=== PATIENT | female | born 1980 | race Caucasian/White ===

== ENCOUNTER 2016-11-01 10:14 | Emergency (ER) | payer OTHER ==
[2016-11-01] MEDS ORDERED: NS 0.9% 1000 ML* 1,000 ML IV SCH (11:00)
[2016-11-01] MEDS ORDERED: Meclizine TAB* 12.5 MG PO ONE (11:35)
[2016-11-01] MEDS ORDERED: NS 0.9% 1000 ML* 1,000 ML IV ONE (11:35)
[2016-11-01] MEDS ORDERED: Metoclopramide IV* 5 MG/ML 2 ML VIAL IV ONE (11:35)
[2016-11-01 11:51] LABS: EBV Response YES
[2016-11-01 11:54] LABS: Hematocrit 45 % (35-47); Mean Corpuscular HGB Conc 33 g/dl (31-36); Mean Corpuscular Hemoglobin 30 pg (27-31); Mean Corpuscular Volume 89 fL (80-97); Mean Platelet Volume 8 um3 (7.4-10.4); Red Blood Count 5.06 10^6/ul (4.0-5.4); Red Cell Distribution Width 14 % (10.5-15); White Blood Count 14.8 10^3/ul (3.5-10.8)
[2016-11-01 11:58] LABS: Add Diff/Slide Review? Slide Review Added; Comments Flag Yes
[2016-11-01 12:10] LABS: ALT 71 U/L (7-52); AST 30 U/L (13-39); Albumin 4.2 g/dL (3.2-5.2); Alkaline Phosphatase 66 U/L (34-104); Anion Gap 3 mmol/L (2-11); BUN/Creatinine Ratio 10.9 (8-20); Blood Urea Nitrogen 12 mg/dL (6-24); C Reactive Protein < 1.00 mg/L (< 5.00); CO2 Carbon Dioxide 31 mmol/L (22-32); Calcium 9.5 mg/dL (8.6-10.3); Chloride 103 mmol/L (101-111); EGFR African American 73.1 (>60); EGFR Non-African American 56.9 (>60); Globulin 3.5 g/dL (2-4); Glucose 105 mg/dL (70-100); Lipase 57 U/L (11.0-82.0); Magnesium 2.4 mg/dL (1.9-2.7); Potassium 3.9 mmol/L (3.5-5.0); Sodium 137 mmol/L (133-145); Total Protein 7.7 g/dL (6.4-8.9)
[2016-11-01 12:32] LABS: Manual Entry Verification AS; Mono Internal Control QC Line Present; Mono Kit Lot# 6110003
[2016-11-01 12:41] LABS: Urine Bilirubin Negative (Negative); Urine Glucose Negative (Negative); Urine Nitrite Negative (Negative)
--- NOTE | 2016-11-01 12:48 | RAD ---
Indication: Headaches, dizziness. CT of the brain was performed without IV contrast. No prior study is available for comparison. Ventricular structures are midline. No midline shift is noted. The extra-axial spaces are unremarkable. There is no evidence of intracranial mass or hemorrhage. No other high or low density lesions are identified. Mastoid air cells and paranasal sinuses as well as the Muñoz calvaria are unremarkable. There is however streak artifact arising from the patient's ear ringing limiting examination of the right orbit and skull base. IMPRESSION: No intracranial mass or hemorrhage is noted.
[2016-11-01 12:53] LABS: TSH (Thyroid Stimulating Horm) 0.87 mcIU/mL (0.34-5.60)
--- NOTE | 2016-11-01 13:59 | ED ---
Jennie Ahmadi Rebecca, scribed for Florentino Barlow MD on 11/01/16 at 1134 . Complex/Multi-Sys Presentation - HPI Summary HPI Summary: Pt is a 35 y/o F who presents to ED with CC of dizziness and nausea. Dizziness is characterized as spinning and is aggravated by looking at her phone, unchanged by moving her head. Pt reports sx began October 09 (3 weeks ago) as sore throat which last for 9 days. She saw her PCP who believed it was viral and prescribed Augmentin (5 mL BID for 1 week) which improved sx for 2 days. 2 days after beginning Augmentin, she began experiencing nausea which had been intermittent until 11 days ago, when it became constant. Additionally c/o intermittent sinus and ear pressure, cough and yellow nasal discharge. Denies abd pain, V/D, constipation, and blood in stool. PMHx sinus infections which start as wisdom tooth pain. Was evaluated by a different ED last Monday (6 days ago) who prescribed her steroids and zofran for sx. - History Of Current Complaint Chief Complaint: EDDizziness Time Seen by Provider: 11/01/16 11:17 Hx Obtained From: Patient Onset/Duration: Lasting Weeks - 3 weeks ago, Still Present Location: Pain At: - Intermittent sinus and ear pressure Character: Pressure Aggravating Factor(s): Dizziness - Looking at phone Associated Signs And Symptoms: Positive: Dizziness - Room spinning, Cough, Nausea, Other - Yellow nasal discharge. Negative: Vomiting, Diarrhea, Abdominal Pain - Allergies/Home Medications Allergies/Adverse Reactions: Allergies Allergy/AdvReac Type Severity Reaction Status Date / Time No Known Allergies Allergy Verified 11/01/16 12:27 PMH/Surg Hx/FS Hx/Imm Hx Endocrine/Hematology History: Denies: Hx Diabetes Cardiovascular History: Denies: Hx Coronary Artery Disease, Hx Hypertension EENT History: Reports: Other - Hx Sinus infections Infectious Disease History: No Infectious Disease History: Denies: Traveled Outside the [place] in Last 30 Days - Family History Known Family History: Positive: Hypertension - Father - Social History Alcohol Use: None Hx Substance Use: No Substance Use Type: Reports: None Smoking Status (MU): Never Smoked Tobacco Review of Systems Positive: Sore Throat - 3 weeks ago - lasted 9 days, Nasal Discharge - Yellow, Other - Sinus and ear pressure Positive: Cough Positive: Nausea, Other - Denies constipation and blood in stool. Negative: Abdominal Pain, Vomiting, Diarrhea Neurological: Other - Dizziness (room spinning) All Other Systems Reviewed And Are Negative: Yes Physical Exam - Summary Physical Exam Summary: General: well-appearing, no pain distress Skin: warm, skin color reflects adequate perfusion, dry Head: normal Eyes: EOMI, AYO ENT: normal Neck: supple, nontender Respiratory: CTA, breath sounds present Cardiovascular: RRR Abdomen: soft, nontender Bowel: present Musculoskeletal: normal, strength/ROM intact Neuro: normal, sensory/motor intact, A&O x3 Psych: affect/mood appropriate Triage Information Reviewed: Yes Vital Signs On Initial Exam: Initial Vitals Temp Pulse Resp BP Pulse Ox 97.8 F 65 16 136/79 100 11/01/16 10:17 11/01/16 10:17 11/01/16 10:17 11/01/16 10:17 11/01/16 10:17 Vital Signs Reviewed: Yes Diagnostics - Vital Signs Vital Signs Temp Pulse Resp BP Pulse Ox 11/01/16 10:46 98.3 F 57 16 128/83 100 11/01/16 10:17 97.8 F 65 16 136/79 100 - Laboratory Lab Results: Lab Results 11/01/16 11/01/16 11/01/16 Range/Units 11:30 11:30 11:30 WBC 14.8 H (3.5-10.8) 10^3/ul RBC 5.06 (4.0-5.4) 10^6/ul Hgb 15.0 (12.0-16.0) g/dl Hct 45 (35-47) % MCV 89 (80-97) fL MCH 30 (27-31) pg MCHC 33 (31-36) g/dl RDW 14 (10.5-15) % Plt Count 276 (150-450) 10^3/ul MPV 8 (7.4-10.4) um3 Neut % (Auto) 88.3 H (38-83) % Lymph % (Auto) 9.0 L (25-47) % [place] % (Auto) 2.1 (1-9) % Eos % (Auto) 0.1 (0-6) % Baso % (Auto) 0.5 (0-2) % Absolute Neuts (auto) 13.1 H (1.5-7.7) 10^3/ul Absolute Lymphs (auto) 1.3 (1.0-4.8) 10^3/ul Absolute Monos (auto) 0.3 (0-0.8) 10^3/ul Absolute Eos (auto) 0 (0-0.6) 10^3/ul Absolute Basos (auto) 0.1 (0-0.2) 10^3/ul Absolute Nucleated RBC 0.01 10^3/ul Nucleated RBC % 0 INR (Anticoag Therapy) 0.85 L (0.89-1.11) APTT 21.0 L (26.0-36.3) seconds Sodium 137 (133-145) mmol/L Potassium 3.9 (3.5-5.0) mmol/L Chloride 103 (101-111) mmol/L Carbon Dioxide 31 (22-32) mmol/L Anion Gap 3 (2-11) mmol/L BUN 12 (6-24) mg/dL Creatinine 1.10 H (0.51-0.95) mg/dL Est GFR ( Amer) 73.1 (>60) Est GFR (Non-Af Amer) 56.9 (>60) BUN/Creatinine Ratio 10.9 (8-20) Glucose 105 H (70-100) mg/dL Lactic Acid (0.5-2.0) mmol/L Calcium 9.5 (8.6-10.3) mg/dL Magnesium 2.4 (1.9-2.7) mg/dL Total Bilirubin 0.40 (0.2-1.0) mg/dL AST 30 (13-39) U/L ALT 71 H (7-52) U/L Alkaline Phosphatase 66 (34-104) U/L C-Reactive Protein < 1.00 (< 5.00) mg/L Total Protein 7.7 (6.4-8.9) g/dL Albumin 4.2 (3.2-5.2) g/dL Globulin 3.5 (2-4) g/dL Albumin/Globulin Ratio 1.2 (1-3) Lipase 57 (11.0-82.0) U/L TSH 0.87 (0.34-5.60) mcIU/mL Beta HCG, Quant < 0.60 mIU/mL Urine Color Urine Appearance Urine pH (5-9) Ur Specific [place] (1.010-1.030) Urine Protein (Negative) Urine Ketones (Negative) Urine Blood (Negative) Urine Nitrate (Negative) Urine Bilirubin (Negative) Urine Urobilinogen (Negative) Ur Leukocyte Esterase (Negative) Urine Glucose (Negative) Monoscreen Negative (Negative) 11/01/16 11/01/16 Range/Units 11:30 12:30 WBC (3.5-10.8) 10^3/ul RBC (4.0-5.4) 10^6/ul Hgb (12.0-16.0) g/dl Hct (35-47) % MCV (80-97) fL MCH (27-31) pg MCHC (31-36) g/dl RDW (10.5-15) % Plt Count (150-450) 10^3/ul MPV (7.4-10.4) um3 Neut % (Auto) (38-83) % Lymph % (Auto) (25-47) % [place] % (Auto) (1-9) % Eos % (Auto) (0-6) % Baso % (Auto) (0-2) % Absolute Neuts (auto) (1.5-7.7) 10^3/ul Absolute Lymphs (auto) (1.0-4.8) 10^3/ul Absolute Monos (auto) (0-0.8) 10^3/ul Absolute Eos (auto) (0-0.6) 10^3/ul Absolute Basos (auto) (0-0.2) 10^3/ul Absolute Nucleated RBC 10^3/ul Nucleated RBC % INR (Anticoag Therapy) (0.89-1.11) APTT (26.0-36.3) seconds Sodium (133-145) mmol/L Potassium (3.5-5.0) mmol/L Chloride (101-111) mmol/L Carbon Dioxide (22-32) mmol/L Anion Gap (2-11) mmol/L BUN (6-24) mg/dL Creatinine (0.51-0.95) mg/dL Est GFR ( Amer) (>60) Est GFR (Non-Af Amer) (>60) BUN/Creatinine Ratio (8-20) Glucose (70-100) mg/dL Lactic Acid 1.7 (0.5-2.0) mmol/L Calcium (8.6-10.3) mg/dL Magnesium (1.9-2.7) mg/dL Total Bilirubin (0.2-1.0) mg/dL AST (13-39) U/L ALT (7-52) U/L Alkaline Phosphatase (34-104) U/L C-Reactive Protein (< 5.00) mg/L Total Protein (6.4-8.9) g/dL Albumin (3.2-5.2) g/dL Globulin (2-4) g/dL Albumin/Globulin Ratio (1-3) Lipase (11.0-82.0) U/L TSH (0.34-5.60) mcIU/mL Beta HCG, Quant mIU/mL Urine Color Straw Urine Appearance Clear Urine pH 7.0 (5-9) Ur Specific [place] 1.004 L (1.010-1.030) Urine Protein Negative (Negative) Urine Ketones Negative (Negative) Urine Blood Negative (Negative) Urine Nitrate Negative (Negative) Urine Bilirubin Negative (Negative) Urine Urobilinogen Negative (Negative) Ur Leukocyte Esterase Negative (Negative) Urine Glucose Negative (Negative) Monoscreen (Negative) Result Diagrams: 11/01/16 11:30 11/01/16 11:30 Lab Statement: Any lab studies that have been ordered have been reviewed, and results considered in the medical decision making process. - CT Brain CT CT Interpretation: No Acute Changes - No intracranial mass or hemorrhage is noted. CT Interpretation Completed By: Radiologist Re-Evaluation - Re-Evaluation First Eval Re-Evaluation Time: 13:53 Change: Unchanged Comment: Discussed lab and CT findings with the pt as well as the D/C plan. Complex Multi-Symp Course/Dx Course Of Treatment: NO CRITICAL CARE TIME. WILL RX AUGMENTIN FOR POSSIBLE CONTINUING SINUSITIS. RX FOR MECLIZINE FOR DIZZINESS. DISCUSSED RESULTS WITH PATIENT. DISCHARGE HOME STABLE. - Diagnoses Provider Diagnoses: Dizziness Discharge - Discharge Plan Condition: Stable Disposition: HOME Prescriptions: Amoxicillin/Clavulanate SUSP* [Augmentin SUSP*] 880 mg PO BID #220 ml Meclizine HCl [Meclizine 25] 25 mg PO Q6HR PRN #15 tab PRN Reason: Dizziness Patient Education Materials: Dizziness (ED) Referrals: No Primary Care Phys,NOPCP [Primary Care Provider] - Additional Instructions: FOLLOW UP WITH YOUR DOCTOR. RETURN TO THE EMERGENCY DEPARTMENT FOR ANY WORSENING OF YOUR CONDITION OR QUESTIONS OR CONCERNS. The documentation as recorded by the Jennie la Rebecca accurately reflects the service I personally performed and the decisions made by me, Florentino Barlow MD.
[2016-11-01 14:11] VITALS: BP 105/71
[2016-11-03 21:46] LABS: EBV Capsid Ag IgG Ab Positive (Negative); EBV Capsid Ag IgM Ab Negative (Negative)
== END 2016-11-01 14:13 | disposition home or self-care (01) ==
LOC: ED 10:14
DX: R42 Dizziness and giddiness (principal); R11.0 Nausea; R05 Cough; J02.9 Acute pharyngitis, unspecified
CPT/HCPCS: 36415; 70450; 80053; 81003; 83605; 83690; 83735; 84443; 84702; 85025; 85610; 85730; 86140; 86308; 86618; 86664; 86665; 96374; 99283; A9270-GY